=== PATIENT | female | born 1970 | race Caucasian/White ===

== ENCOUNTER → 2016-06-08 | Outpatient (CLI) | payer OTHER ==
--- NOTE | 2016-06-08 16:51 | DX ---
Left Ankle, Three Views History: Achilles tendon pain and nodule, no trauma, M 76.60 Findings: The ankle joint looks normal. The talar dome is normal. The disk difficult to exclude a sma ll posterior recess ankle joint effusion. No soft tissue calcification is present. There is no erosiv e change. There is a subtle soft tissue bulge involving the posterior margin of the distal calf appro ximately 2 cm above the posterior calcaneus : Impression:1. Normal ankle.. 2. Dorsal soft tissue bulge. Consider ultrasound or MRI of the Achilles tendon for further evaluation .
== END ==
LOC: BMCIMAGING 16:01
PROVIDERS: ATTEND Family Medicine
DX: M25.572 Pain in left ankle and joints of left foot (principal); M79.9 Soft tissue disorder, unspecified

== ENCOUNTER → 2016-06-25 | Outpatient (CLI) | payer OTHER ==
--- NOTE | 2016-06-25 10:01 | US ---
Ultrasound examination of the left Achilles tendon. History: Palpable lump on the Achilles tendon. Technique: Sonographic evaluation of the left Achilles tendon was performed by the correspondence school teacher and my self utilizing a high resolution linear transducer. Findings: At the site of palpable abnormality, there is evidence of focal tendinosis and minimal part ial interstitial tear of the posterior aspect of the Achilles tendon. The remainder of the Achilles t endon is normal in sonographic features. Impression: 1. Focal tendinosis and mild interstitial tearing dorsal aspect of the left Achilles tendon at the si te of palpable abnormality. Comment: If the lump persists or is painful or bothersome to the patient, ultrasound-guided platelet rich plasma therapy could be performed.
== END ==
LOC: BMCIMAGING 09:08
PROVIDERS: ATTEND Family Medicine
DX: M76.62 Achilles tendinitis, left leg (principal)

== ENCOUNTER → 2017-11-14 | Outpatient (CLI) | payer OTHER | LOC: BMCIMAGING 10:43 | PROVIDERS: ATTEND Family Medicine | DX: M47.9 Spondylosis, unspecified (principal); M16.0 Bilateral primary osteoarthritis of hip ==

== ENCOUNTER → 2018-02-11 | Outpatient (CLI) | payer OTHER | LOC: FIMAGING 08:29 | PROVIDERS: ATTEND Family Medicine | DX: S73.191A Other sprain of right hip, initial encounter (principal); M16.11 Unilateral primary osteoarthritis, right hip; M25.451 Effusion, right hip; M85.48 Solitary bone cyst, other site; M51.36 Other intervertebral disc degeneration, lumbar region ==

== ENCOUNTER → 2018-04-28 | Outpatient (CLI) | payer OTHER | LOC: FIMAGING 09:25 | PROVIDERS: ATTEND Orthopaedic Surgery | DX: Z01.818 Encounter for other preprocedural examination (principal); M16.0 Bilateral primary osteoarthritis of hip ==

== ENCOUNTER 2018-06-09 09:56 | Inpatient (IN) | payer OTHER ==
[2018-07-21] MEDS ORDERED: FAMOTIDINE 20 MG TAB PO ONE (05:58)
[2018-07-21] MEDS ORDERED: ceFAZolin 2 GM/DEXTROSE 100 ML IV ONE (05:58)
[2018-07-21] MEDS ORDERED: ACETAMINOPHEN 325 MG TAB PO ONE (05:58)
[2018-07-21] MEDS ORDERED: LR 1,000 ML IV ONE (06:01)
--- NOTE | 2018-07-21 06:38 | PDHPUP ---
History & Physical Update H&P update statement: This history and physical update is based on an assessment of the patient which was completed after admission or registration (within 24 hours), but prior to the surgery/procedure. H&P update: no change in patient's condition since H&P completed
--- NOTE | 2018-07-21 06:38 | PDIAF ---
- Diagnosis Diagnosis: right hip djd Code Status: Full Code - Medication Management Discharge Medications: electronically signed and located in the Home Medication List. - Orders Services needed: Home Care, Physical Therapy Home Care Face to Face: I certify that this patient was under my care and that I had the required [id number]-[id number] encounter meeting the encounter requirements on the discharge day. My findings support the fact that the patient is homebound as defined in Home Care Face to Face Continued: CMS Chapter 7 Medicare Benefits Manual 30.1.1 , The condition of the patient is such that there exists a normal inability to leave home and consequently, leaving home would require a considerable and taxing effort. Diet Recommendation: no restrictions on diet Diet Texture: Regular Texture Diet Additional Instructions: TOTAL JOINT ARTHROPLASTY DISCHARGE INSTRUCTIONS 1. Your surgeon follows the [facility] protocol for reducing your risk of DVT (blood clots) following surgery. Medication will be ordered to prevent blood clots. A sudden increase in calf pain and/or swelling could indicate a blood clot in your leg. If this occurs, please call your surgeon or his/her pediatric physician assistant. An ultrasound of the leg may be necessary to diagnose a blood clot. If you have conditions that make you a higher risk for blood clots, your surgeon may use more aggressive ways to prevent them. Notify your surgeon if you think you are a high risk for blood clots. 2. Wear your white surgical stockings (KAREN hose) for 2 weeks. This decreases your swelling and may help prevent blood clots. It is ok to remove KAREN hose at night time to give your legs a break. 3. Swelling and bruising in the surgical leg is common. If you feel that it is excessive, please notify your surgeon. 4. Elevate your surgical leg with the ankle above the hip several times every day. Please keep the leg straight when you elevate by putting pillows under your foot. Do not put pillows under your knee. This will make being able to fully straighten more difficult. This is uncomfortable, but try to do it as much as possible. 5. For total knee replacements use compressive wrap on your knee for 3-5 days after surgery, then you can discontinue it. 6. Use a walker or crutches for 1-2 weeks. Progress your weight-bearing as tolerated. You may start to use a cane when you feel stable and safe. 7. You will receive physical therapy instructions in the hospital. Continue those exercises at home. There are additional exercises in the total joint booklet you were given before surgery. Outpatient physical therapy will begin 7- 10 days after surgery. Please schedule this in advance. 8. Use ice on your knee at least 3-5 times every day for 30 minutes. This helps reduce pain and swelling. Also use it at night before falling asleep. 9. Leave your surgical dressing in place for 2 weeks. Your dressing is water resistant, but not waterproof. Cover it with Saran Wrap or Xcsuv-a-Fbap before showering. You may shower as soon as you feel safe entering a shower. If you notice bleeding from your incision 2 or 3 days after surgery, please notify your surgeon. 10. Due to narcotics, decreased activity and altered diet, most patients experience constipation after surgery. Use lzep-vih-qemgwny stool softeners while you are on narcotics. 11. You may drive a car when you are comfortable bearing weight, have good muscular control of your leg and are off narcotics. This usually occurs 2-4 weeks after surgery, depending on which leg was operated on. 12. If there are questions not addressed here, please refer the [facility] book given for more information. If you still have questions, please contact your surgeon s office. 13. If you have a life-threatening emergency, please call 911 and go to the emergency room immediately. For non-life threatening emergencies, please call your physicians office for advice before going to the emergency room. - Follow Up Care Current Providers and Referrals: Tiana Miller MD [Primary Care Provider] - Steve Martin MD [Medical Doctor] -
[2018-07-21] MEDS ORDERED: MIDAZOLAM 2 MG/2 ML VIAL IVP ONE (06:52)
--- NOTE | 2018-07-21 06:54 | PDANEPAE ---
ANE History of Present Illness right RAMONE ANE Past Medical History - Cardiovascular History Hx Hypertension: No Hx Arrhythmias: No Hx Chest Pain: No Hx Coronary Artery / Peripheral Vascular Disease: No Hx CHF / Valvular Disease: No Hx Palpitations: No - Pulmonary History Hx COPD: No Hx Asthma/Reactive Airway Disease: No Hx Recent Upper Respiratory Infection: No Hx Oxygen in Use at Home: No Hx Sleep Apnea: No Sleep Apnea Screening Result - Last Documented: Negative - Neurologic History Hx Cerebrovascular Accident: No Hx Seizures: No Hx Dementia: No - Endocrine History Hx Diabetes: No Hypothyroid: No Hyperthyroid: No Obesity: no - Renal History Hx Renal Disorders: No - Liver History Hx Hepatic Disorders: No - Neurological & Psychiatric Hx Hx Neurological and Psychiatric Disorders: Yes Neurological / Psychiatric History Comment: ANXIETY FEAR OF NEEDLES AND IV'S - Cancer History Hx Cancer: No - Congenital Disorder History Hx Congenital Disorders: Yes Congenital History Comment: GENETIC HIPS - GI History Hx Gastrointestinal Disorders: No - Other Health History Other Health History: OSTEOARTHRITIS - Chronic Pain History Chronic Pain: Yes (RT HIP) - Surgical History Prior Surgeries: HYSTEROSCOPY. JASVIR BREAST AUGMENTATION ANE Review of Systems Review of systems is: negative Review of Systems: - Exercise capacity METS (RN): 4 METS ANE Patient History - Allergies Allergies/Adverse Reactions: No Known Allergies Allergy (Verified 05/12/18 11:12) - Home Medications Home medications: home medication list seen and reviewed Home Medications: Xanax 0.25 MG (*) PRN 07/11/18 [Last Taken 07/21/18 05:20] - NPO status NPO Since - Liquids (Date): 07/20/18 NPO Since - Liquids (Time): 21:00 NPO Since - Solids (Date): 07/20/18 NPO Since - Solids (Time): 21:00 - Anes Hx Anes Hx: no prior problems - Smoking Hx Smoking Status: Former smoker ANE Labs/Vital Signs - Vital Signs Blood Pressure: 118/68 Heart Rate: 68 Respiratory Rate: 10 O2 Sat (%): 98 Height: 167.64 cm Weight: 81.647 kg ANE Physical Exam - Airway Neck exam: FROM Mallampati Score: Class 2 Mouth exam: normal dental/mouth exam - Pulmonary Pulmonary: no respiratory distress - Cardiovascular Cardiovascular: regular rate and rhythym - ASA Status ASA Status: II ANE Anesthesia Plan Anesthesia Plan: spinal
[2018-07-21] MEDS ORDERED: PROPOFOL/EMULSION 500 MG/50 ML BOTTLE IV ONE (06:57)
[2018-07-21] MEDS ORDERED: LIDOCAINE 2% 5 ML SDV ONE (06:58)
[2018-07-21] MEDS ORDERED: BUPIVACAINE/DEXTROSE 7.5MG/ML 2 ML SPINAL AMP SP ONE (06:58)
[2018-07-21] MEDS ORDERED: ceFAZolin 1 GM/5 ML SYR ONE (07:12)
[2018-07-21] MEDS ORDERED: TRANEXAMIC ACID 1,000 MG in NS 100 ML IV ONE (07:15)
[2018-07-21] MEDS ORDERED: ROPIVACAINE 0.2% 80 MG, EPINEPHrine 0.2 MG, KETOROLAC TROMETHAMINE 30 MG, morphINE 10 M... IU ONE (07:15)
[2018-07-21] MEDS ORDERED: ACETAMINOPHEN 500 MG TAB PO PRN (07:42)
[2018-07-21] MEDS ORDERED: NALOXONE HCL 0.4 MG/ML INJ IVP PRN (07:42)
[2018-07-21] MEDS ORDERED: HYDROCODONE/APAP 5/325 TAB PO PRN (07:42)
[2018-07-21] MEDS ORDERED: ALBUTEROL 3 ML DEYVIAL IH PRN (07:42)
[2018-07-21] MEDS ORDERED: HYDROmorphONE/DILAUDID 2 MG/ML INJ IVP PRN (07:42)
[2018-07-21] MEDS ORDERED: LR 500 ML IV PRN (07:42)
[2018-07-21] MEDS ORDERED: ONDANSETRON 4 MG/2 ML VIAL IVP PRN (07:42)
[2018-07-21] MEDS ORDERED: oxyCODONE IR 5 MG TAB PO PRN ×2 (07:42→08:57)
--- NOTE | 2018-07-21 07:42 | POSTANESTH ---
Post Anesthetic Evaluation Cardiovascular Status: Normal, Stable Respiratory Status: Normal, Stable Level of Consciousness/Mental Status: Can Participate in Eval, Alert and Oriented Pain Control: Adequate, Prn Tx Ordered Nausea/Vomiting Control: Adequate, Prn Tx Ordered Complications Possibly Related to Anesthesia: None Noted
[2018-07-21] MEDS ORDERED: ePHEDrine SULFATE 25 MG/5 ML SYR ONE (07:52)
[2018-07-21] MEDS ORDERED: PHENYLEPHRINE HCL 100 MCG/ML SYR ONE (08:01)
[2018-07-21] MEDS ORDERED: PROPOFOL 200 MG/20 ML VIAL ONE ×2 (08:10)
[2018-07-21] MEDS ORDERED: PROMETHAZINE HCL 25 MG SUPPR PR PRN (08:57)
[2018-07-21] MEDS ORDERED: diphenhydrAMINE 25 MG CAP PO PRN (08:57)
[2018-07-21] MEDS ORDERED: CYCLOBENZAPRINE 10 MG TAB PO PRN (08:57)
[2018-07-21] MEDS ORDERED: BISACODYL 10 MG SUPP PR PRN (08:57)
[2018-07-21] MEDS ORDERED: POLYETHYLENE GLYCOL 3350 17 GM PKT PO PRN (08:57)
[2018-07-21] MEDS ORDERED: TEMAZEPAM 15 MG CAP PO PRN (08:57)
[2018-07-21] MEDS ORDERED: LACTULOSE 20 GM/30 ML UDCUP PO PRN (08:57)
[2018-07-21] MEDS ORDERED: METOCLOPRAMIDE 10 MG/2 ML VIAL IVP PRN (08:57)
[2018-07-21] MEDS ORDERED: MAGNESIUM HYDROXIDE 30 ML UDCUP PO PRN (08:57)
[2018-07-21] MEDS ORDERED: DIPHENOXYLATE/ATROPINE LOMOTIL 1 TAB PO PRN (08:57)
[2018-07-21] MEDS ORDERED: ONDANSETRON DISINTEGRATING 4 MG TAB PO PRN (08:57)
[2018-07-21] MEDS ORDERED: PROMETHAZINE HCL 25 MG/ML INJ IVP PRN (08:57)
--- NOTE | 2018-07-21 08:57 | POSTOPPROG ---
Post Op Note Date of Operation: 07/21/18 Surgeon: Steve Martin Interior Wall Assembler: johnnie Anesthesiologist: heather Anesthesia: Spinal Pre-op Diagnosis: right hip djd Post-op Diagnosis: same Indication: same Procedure: right seth Inf/Abcess present in the surg proc area at time of surgery?: No Depth: Deep Incisional (Fascial) EBL: 100-500 Drains: Hemovac
[2018-07-21] MEDS ORDERED: LR 1,000 ML IV SCH (09:00)
[2018-07-21] MEDS ORDERED: fentaNYL 100 MCG/2 ML INJ ONE (09:37)
[2018-07-21] MEDS: fentaNYL 100 MCG/2 ML INJ IVP PRN ×2 (09:38→09:43)
[2018-07-21] MEDS: SENNOSIDES/DOCUSATE SODIUM TAB PO SCH ×2 (10:53→20:51)
--- NOTE | 2018-07-21 10:59 | PDMN ---
Medical Necessity Medical necessity: Pt meets inpt criteria per MD order and [facility] S-560, Hip Arthroplasty, IP only list, A-2 days. 48 y/o w/R hip DJD admitted for R RAMONE and post-op care.
[2018-07-21] MEDS: ONDANSETRON 4 MG/2 ML VIAL IVP PRN ×2 (11:31→17:58)
[2018-07-21] MEDS: ceFAZolin 2 GM/DEXTROSE 100 ML IV SCH ×2 (14:28→21:31)
[2018-07-21] MEDS: ACETAMINOPHEN 325 MG TAB PO SCH ×2 (14:30→20:52)
[2018-07-21] MEDS: TRANEXAMIC ACID 650 MG TAB PO SCH ×2 (14:31→21:31)
[2018-07-21] MEDS: FAMOTIDINE 20 MG TAB PO SCH (20:51)
[2018-07-21] MEDS: ASPIRIN 325 MG TAB PO SCH (21:31)
[2018-07-22] MEDS: ACETAMINOPHEN 325 MG TAB PO SCH ×2 (03:52→11:54)
--- NOTE | 2018-07-22 06:46 | PDIAF ---
- Diagnosis Diagnosis: right hip djd Code Status: Full Code - Medication Management Discharge Medications: electronically signed and located in the Home Medication List. - Orders Services needed: Home Care, Physical Therapy Home Care Face to Face: I certify that this patient was under my care and that I had the required jsfo-cq-hioy encounter meeting the encounter requirements on the discharge day. My findings support the fact that the patient is homebound as defined in Home Care Face to Face Continued: CMS Chapter 7 Medicare Benefits Manual 30.1.1 , The condition of the patient is such that there exists a normal inability to leave home and consequently, leaving home would require a considerable and taxing effort. Diet Recommendation: no restrictions on diet Diet Texture: Regular Texture Diet Additional Instructions: TOTAL JOINT ARTHROPLASTY DISCHARGE INSTRUCTIONS 1. Your surgeon follows the [facility] protocol for reducing your risk of DVT (blood clots) following surgery. Medication will be ordered to prevent blood clots. A sudden increase in calf pain and/or swelling could indicate a blood clot in your leg. If this occurs, please call your surgeon or his/her information technology assistant. An ultrasound of the leg may be necessary to diagnose a blood clot. If you have conditions that make you a higher risk for blood clots, your surgeon may use more aggressive ways to prevent them. Notify your surgeon if you think you are a high risk for blood clots. 2. Wear your white surgical stockings (KAREN hose) for 2 weeks. This decreases your swelling and may help prevent blood clots. It is ok to remove KAREN hose at night time to give your legs a break. 3. Swelling and bruising in the surgical leg is common. If you feel that it is excessive, please notify your surgeon. 4. Elevate your surgical leg with the ankle above the hip several times every day. Please keep the leg straight when you elevate by putting pillows under your foot. Do not put pillows under your knee. This will make being able to fully straighten more difficult. This is uncomfortable, but try to do it as much as possible. 5. For total knee replacements use compressive wrap on your knee for 3-5 days after surgery, then you can discontinue it. 6. Use a walker or crutches for 1-2 weeks. Progress your weight-bearing as tolerated. You may start to use a cane when you feel stable and safe. 7. You will receive physical therapy instructions in the hospital. Continue those exercises at home. There are additional exercises in the total joint booklet you were given before surgery. Outpatient physical therapy will begin 7- 10 days after surgery. Please schedule this in advance. 8. Use ice on your knee at least 3-5 times every day for 30 minutes. This helps reduce pain and swelling. Also use it at night before falling asleep. 9. Leave your surgical dressing in place for 2 weeks. Your dressing is water resistant, but not waterproof. Cover it with Saran Wrap or Tyobt-p-Ghdo before showering. You may shower as soon as you feel safe entering a shower. If you notice bleeding from your incision 2 or 3 days after surgery, please notify your surgeon. 10. Due to narcotics, decreased activity and altered diet, most patients experience constipation after surgery. Use tkpt-tpg-amdhybt stool softeners while you are on narcotics. 11. You may drive a car when you are comfortable bearing weight, have good muscular control of your leg and are off narcotics. This usually occurs 2-4 weeks after surgery, depending on which leg was operated on. 12. If there are questions not addressed here, please refer the [facility] book given for more information. If you still have questions, please contact your surgeon s office. 13. If you have a life-threatening emergency, please call 911 and go to the emergency room immediately. For non-life threatening emergencies, please call your physicians office for advice before going to the emergency room. - Follow Up Care Current Providers and Referrals: Tiana Miller MD [Primary Care Provider] - Steve Martin MD [Medical Doctor] -
--- NOTE | 2018-07-22 06:47 | SOAPPROG ---
SOAP Progress Note Assessment/Plan: Assessment: s/p right seth Plan:d/c home wbat anterior hip precautions f/u at two weeks dvt precautions 07/22/18 06:46 Subjective: min pain no cp or sob Objective: Vital Signs Temp Pulse Resp BP Pulse Ox 37.2 C 72 16 90/47 L 95 07/22/18 04:00 07/22/18 04:00 07/22/18 04:00 07/22/18 04:00 07/22/18 04:00 Laboratory Results 07/22/18 04:13 07/21/18 07/22/18 07/23/18 05:59 05:59 05:59 Intake Total 7770 700 Output Total 1690 20 Balance 6080 680 dressing intact intact pf,df,ehl toes warm and pink neg homans anthony xrays stable anatomic alignment, no fx or lucency ICD10 Worksheet Patient Problems: Problems Problem Status Onset Hip arthritis Acute - ICD10 Problem Qualifiers (1) Hip arthritis
[2018-07-22] MEDS: ASPIRIN 325 MG TAB PO SCH (07:52)
[2018-07-22] MEDS: SENNOSIDES/DOCUSATE SODIUM TAB PO SCH (07:52)
[2018-07-22] MEDS: TRANEXAMIC ACID 650 MG TAB PO SCH (07:53)
[2018-07-22] MEDS: FAMOTIDINE 20 MG TAB PO SCH (07:53)
--- NOTE | 2018-07-22 10:10 | ASMTLACE ---
MARBELLAE Length of stay for Answers: 2 days current admission Acuity / Level of Answers: Yes Care: Did the patient have an inpatient admission? Comorbidities - select Answers: Opioid dependence all that apply / Chronic pain # of Emergency department Answers: 0 visits in the last 6 months Social determinants Answers: Mental health diagnosis (anxiety, depression, pers onality disorders, etc.) Score: 12 Date Signed: 07/22/2018 10:09 AM Electronically Signed By:TWAN Negrete
--- NOTE | 2018-07-22 10:11 | ASMTCMCOM ---
CM Note CM Note Notes: Pt had planned OA of hip. PT rec home/HHC. Pt medically stable for d/c with [facility] PT, pt address/phone verified. Tiffany at [facility] alerted. Date Signed: 07/22/2018 10:10 AM Electronically Signed By:TWAN Negrete
[2018-07-22 13:32] VITALS: BP 101/60
--- NOTE | 2018-07-22 13:44 | ASDISCHSUM ---
Discharge Information Plan Status:Home with Home Health Medically Cleared to Leave: Discharge Date:07/22/2018 12:16 PM CM D/C Disposition: ADT D/C Disposition:Home Health Service Projected Discharge Date:07/22/2018 11:00 AM Transportation at D/C: Discharge Delay Reason: Follow-Up Date:07/22/2018 11:00 AM Discharge Slot: Final Diagnosis: Placement Information Referral Type:*Home Health Care Services Referral ID:[facility]-[id number] Provider Name:[facility] Address 1:[address] Address 2: City:[place] Selection Factors: State:[place] Patient Contact Information Contact Name:YANIRAYUN Relationship:Mother Address: Work Phone: City: [facility] Phone: [facility] Code: Email: Financial Information Financial Class:HMO and PPO Plans Primary Plan Desc:[employer] AMINAH FAGAN Primary Plan Number:[id number] Secondary Plan Desc: Secondary Plan Number: Assessment Information LACE LACE Length of stay for Answers: 2 days current admission Acuity / Level of Answers: Yes Care: Did the patient have an inpatient admission? Comorbidities - select Answers: Opioid dependence all that apply / Chronic pain # of Emergency department Answers: 0 visits in the last 6 months Social determinants Answers: Mental health diagnosis (anxiety, depression, pers onality disorders, etc.) Score: 12 Date Signed: 07/22/2018 10:09 AM Electronically Signed By:TWAN Negrete [facility] CM Progress Note CM Note CM Note Notes: Pt had planned OA of hip. PT rec home/C. Pt medically stable for d/c with [facility] PT, pt address/phone verified. Tiffany at [facility] alerted. Date Signed: 07/22/2018 10:10 AM Electronically Signed By:TWAN Negrete Intervention Information
--- NOTE | 2018-07-22 14:47 | GDS ---
[f rep st] DISCHARGE SUMMARY ADMIT DIAGNOSIS: Right hip degenerative joint disease. DISCHARGE DIAGNOSIS: Right hip degenerative joint disease. PROCEDURE: Right total hip arthroplasty. HISTORY OF PRESENT ILLNESS: The patient is a 48-year-old woman who has end-stage arthritis to her [facility] hip. She presents for elective total hip replacement. HOSPITAL COURSE: The patient was admitted overnight after uncomplicated total hip arthroplasty. She tolerated the procedure well. At the time of discharge, she is tolerating an oral diet. Pain is we ll controlled on oral medicines. She is voiding without difficulty. Dressing is clean, dry, and int act. She has negative Homans. X-rays are stable with anatomic concentric alignment and no fracture. DISCHARGE ACTIVITY: Weightbearing as tolerated. Anterior hip precautions. FOLLOWUP: In 2 weeks. Seek attention for increasing redness, swelling, drainage. DISCHARGE MEDICATIONS: Oxycodone 5 mg 1-2 every 6 hours p.r.n. pain, aspirin 325 mg p.o. daily. /[id number]/MODL
--- NOTE | 2018-07-22 21:18 | GOP ---
[f rep st] OPERATIVE REPORT DATE OF OPERATION: 07/21/2018 SURGEON: Steve Martin MD [employer]Y PLAN SALESPERSON: Dominick Peña, ophthalmology surgical technician who was a medical necessity for the entirety of the case. PREOPERATIVE DIAGNOSIS: Right hip degenerative joint disease. POSTOPERATIVE DIAGNOSIS: Right hip degenerative joint disease. PROCEDURE PERFORMED: Right total hip arthroplasty, MAKOplasty/anterior. FINDINGS: SPECIMENS: To Pathology, the femoral head. INDICATIONS: The patient is a 48-year-old woman with end-stage arthritis to her right hip. Clinical and radiographic features are consistent with this. She presents for elective total hip arthroplasty. She understands the risks, benefits, alternatives, and wishes to proceed. DESCRIPTION OF PROCEDURE: The patient was identified in the preanesthesia area. The right hip clearl y demarcated as operative site with indelible marker. She was given 2 g of Ancef intravenously in rou te to the operative suite. In the OR, spinal anesthetic was placed. She was positioned in the supine position. The pelvis and both lower extremities were sterilely prepped and draped in the usual fashio n. Appropriate time-out procedure was carried out. Attention was first turned to the left hemipelvis. A 2 cm incision was made over the iliac crest. Thr ee pins were placed, followed by the pelvic reference array. Attention was then turned to the right h ip. An anterior approach was made. Thick subcutaneous flaps were elevated. The fascia of the tensor f ascia jason was opened and the tensor retracted laterally. The underlying vascular structures were cau terized and transected. The rectus was elevated off the anterior capsule. Retractors were placed into an extracapsular position. A T capsulotomy was then made. Retractors then placed into an intracapsul ar position. An acetabular checkpoint placed. The bony wedge was withdrawn from the femoral neck. The femoral head was withdrawn. The soft tissue contents of the acetabulum were sharply excised. The bon y landmarks were entered into the computer in standard fashion. Using the MAKOplasty software with a 54 mm reamer, resections were made. A Trident 54 mm acetabular shell was then placed, confirmed to be fully seated. Two 6.5 mm cancellous screws were placed for additional support and stability. A 0-deg ree X3 liner was placed, confirmed to be fully seated. Attention was then turned to the femur, which was delivered to the use of soft tissue releases and ex tension of the table. The proximal canal was opened and broached to a size 3. Trial reduction was car ried out. Ultimately, a size 3 stem was then placed and confirmed to be fully seated. An additional t rialing was carried out and a 36 mm +2.5 mm Biolox head was placed across the trunnion. This was redu vee. This allowed full extension, without instability with external rotation to 90 degrees, and leg l engths were equal. The wound was copiously irrigated. A drain was then placed. The tissue injected wi th joint cocktail of ropivacaine, Toradol, and epinephrine, and the fascia closed using 0 Vicryl, sub cutaneous tissue closed using 2-0 Monocryl, and the skin stapled. Sterile compressive dressing was ap plied. The patient was awakened, extubated, taken to recovery room in good, stable condition. TOTAL TOURNIQUET TIME: None. COMPLICATIONS: None. IMPLANTS: [place] Trident II acetabular shell, size 54, two 6.5 mm cancellous screws, a 0-degree X3 liner, Accolate II 127 degree neck angle hip stem size 3, and Biolox head 36 mm, +2.5 mm neck length. /[id number]/MODL
== END 2018-07-22 12:16 | disposition home health service (06) | DRG 470 ==
LOC: F3N 07-21 05:46
PROVIDERS: ADMIT Family Medicine; ATTEND Orthopaedic Surgery
PROC: 8E0YXCZ Robotic Assisted Procedure of Lower Extremity (ICD-10-PCS; principal; 2018-07-21 07:15)
PROC: 0SR904A Replacement of Right Hip Joint with Ceramic on Polyethylene Synthetic Substitute, Uncemented, Open Approach (ICD-10-PCS; principal; 2018-07-21 07:15)
DX: M16.11 Unilateral primary osteoarthritis, right hip (principal)
CPT/HCPCS: 97116-GP; 97161-GP; 97165-GO; 97535-GO; C1713; J0171; J0690; J1885; J2250; J2270; J2370; J2405; J2550; J2704; J2795; J3010

== ENCOUNTER → 2018-09-02 | Outpatient (CLI) | payer OTHER | LOC: BMCIMAGING 09:11 | PROVIDERS: ATTEND Physician Assistant | DX: Z09 Encounter for follow-up examination after completed treatment for conditions other than malignant neoplasm (principal); Z96.641 Presence of right artificial hip joint ==